=== PATIENT | male | born 1955 | race Caucasian/White ===

== ENCOUNTER 2018-09-16 08:27 | Emergency (ER) | payer OTHER ==
[~2018-09-16] VITALS: Wt 73.2 kg
[~2018-09-16 08:27] MED LIST: EPIN0.3P4 INJ; FAMO-96 PO; HYDR50TA15 PO
[2018-09-16 08:34] VITALS: BP 144/57; PULSE 92; RESP 17
[2018-09-16] MEDS ORDERED: SOD CHLORIDE 0.9% 1,000 ML IV STA (10:48)
--- NOTE | 2018-09-16 10:52 | ERD ---
ER Documentation Chief Complaint Chief Complaint BODYACHES, COUGH, FEVER AT HOME, ONSET 3 DAYS HPI This is a 62-year-old male presents to the ED with complaints of cough, congestion, body aches and fevers times 3 days. Patient states his cough is worse at nighttime. He states he has been taking tramadol for his body aches. He also started taking azithromycin which was prescribed through his doctor in the [facility] yesterday. He states he feels a little bit better but returns today because his cough kept him up at night and is requesting a chest x-ray. He denies any chest pain, shortness of breath, nausea, vomiting, abdominal pain or any other symptoms. Patient was seen here about 2 months ago for presumed tuberculosis after returning from [facility]. Confirmatory Qunatiferon test at that time was negative and pt did not require treatment. ROS All systems reviewed and are negative except as per history of present illness. Medications Home Meds Active Scripts Dextromethorphan Hb-Promethazine Hcl* (Promethazine DM* Syrup) 473 Ml Syrup, 5 ML PO Q6 PRN for COUGH for 7 Days, ML Prov:RAFFY RAMIREZ-C 09/16/18 Epinephrine (Epipen 2-Trip) 0.3 Mg/0.3 Ml Pen.injctr, 1 EA INJ ONCE PRN for ALLERGIC REACTION, #1 EA Prov:PASILABANPAT F 08/04/18 Hydroxyzine Hcl* (Hydroxyzine Hcl*) 50 Mg Tablet, 50 MG PO Q6H PRN for ITCHING, #30 TAB Prov:PASILABAN,PRAKASHAR F 08/04/18 Famotidine* (Pepcid*) 20 Mg Tablet, 40 MG PO BID for 30 Days, TAB Prov:PASILABAN,KLAR F 08/04/18 Allergies Allergies: Coded Allergies: No Known Allergy (Unverified , 09/16/18) PMhx/Soc History of Surgery: Yes (R hemicolectomy, appendectomy, LEFT knee) Anesthesia Reaction: No Hx Neurological Disorder: No Hx Respiratory Disorders: No Hx Cardiac Disorders: No Hx Psychiatric Problems: No Hx Miscellaneous Medical Probl: No Hx Alcohol Use: No Hx Substance Use: No Hx Tobacco Use: No Smoking Status: Never smoker Physical Exam Vitals Vital Signs Date Temp Pulse Resp B/P (MAP) Pulse Ox O2 O2 Flow FiO2 Time Delivery Rate 09/16/18 98.5 92 17 144/57 98 08:34 (86) Physical Exam Const: No acute distress Head: Atraumatic Eyes: Normal Conjunctiva ENT: Normal External Ears, Nose and Mouth. Neck: Full range of motion. No meningismus. Resp: + Right lower lung base with expiratory wheeze. No rhonchi no rales. No respiratory distress. Cardio: Regular rate and rhythm, no murmurs Abd: Soft, non tender, non distended. Normal bowel sounds Skin: No petechiae or rashes Back: No midline or flank tenderness Ext: No cyanosis, or edema Neur: Awake and alert Psych: Normal Mood and Affect Result Diagram: 09/16/18 1055 09/16/18 1055 Results 24 hrs Laboratory Tests Test 09/16/18 10:55 White Blood Count 7.2 10^3/ul Red Blood Count 4.71 10^6/ul Hemoglobin 14.3 g/dl Hematocrit 43.2 % Mean Corpuscular Volume 91.7 fl Mean Corpuscular Hemoglobin 30.4 pg Mean Corpuscular Hemoglobin Concent 33.1 g/dl Red Cell Distribution Width 12.2 % Platelet Count 263 10^3/UL Mean Platelet Volume 8.9 fl Immature Granulocytes % 0.700 % Neutrophils % 67.5 % Lymphocytes % 16.9 % Monocytes % 12.3 % Eosinophils % 2.2 % Basophils % 0.4 % Nucleated Red Blood Cells % 0.0 /100WBC Immature Granulocytes # 0.050 10^3/ul Neutrophils # 4.8 10^3/ul Lymphocytes # 1.2 10^3/ul Monocytes # 0.9 10^3/ul Eosinophils # 0.2 10^3/ul Basophils # 0.0 10^3/ul Nucleated Red Blood Cells # 0.0 10^3/ul Sodium Level 140 mmol/L Potassium Level 4.1 mmol/L Chloride Level 100 mmol/L Carbon Dioxide Level 29 mmol/L Anion Gap 11 Blood Urea Nitrogen 12 mg/dl Creatinine 1.01 mg/dl Est Glomerular Filtrat Rate mL/min > 60 mL/min Glucose Level 108 mg/dl Calcium Level 10.2 mg/dl Current Medications Medications Dose Sig/Javi Start Time Status Last (Trade) Ordered Route PRN Stop Time Admin Dose Reason Admin Sodium 1,000 ml @ Q1H STAT 09/16/18 DC 09/16/18 Chloride 1,000 mls/hr IV 10:48 10:58 09/16/18 11:47 Procedures/MDM Lab Results above were reviewed and interpreted by me as below. CBC: no e/o of systemic infection or severe anemia BMP: no e/o severe acidosis, alkalosis, renal failure, diabetic ketoacidosis Radiology Results as interpreted by Radiology: PROCEDURE: XR Chest CLINICAL INDICATION: Shortness of breath TECHNIQUE: Frontal view of the chest COMPARISON: CT CHEST 08/14/2018 FINDINGS: The cardiomediastinal silhouette is within normal limits. No focal pulmonary consolidations. There is no evidence of significant pleural effusion or pneumothorax. No suspicious osseous lesions. IMPRESSION: No radiographic evidence of acute cardiopulmonary disease. Nursing Notes Reviewed. Previous Medical Records requested via the Electronic Health Record. EMERGENCY DEPARTMENT COURSE / MEDICAL DECISION MAKIN yo M presents with cough and chest congestion x 3 days. He is afebrile here and vital signs are stable. No signs of hypoxia or respiratory distress. Lungs sounds are unremarkable on physical exam. CBC and CMP unremarkable. CXR negative for any PNA or significant pulmonary process. Sx are likely related to viral bronchitis. I do not think abx are appropriate in this setting however pt has already been taking Azithromycin since yesterday. He was given a rx for Promethazine DM and recommended follow up with PCP in 2 days. Strict return precautions given. Prior to discharge, patients vital signs have been reviewed SPECIALIST FOLLOW UP RECOMMENDED: None Patient has been advised to follow up with primary care in 1-2 days. Departure Diagnosis: Primary Impression: Bronchitis Additional Impression: Cough Condition: Stable Patient Instructions: Acute Bronchitis Referrals: [facility] RAFFY RAMIREZ PA-C Sep 16, 2018 10:52
[2018-09-16] MEDS ORDERED: D-ME473S2 PO (11:44)
== END 2018-09-16 12:09 | disposition home or self-care (01) ==
LOC: FTE 08:27
DX: J40 Bronchitis, not specified as acute or chronic (principal)
CPT/HCPCS: 36415; 71045; 80048; 85025; 96360; 99284; J7030

== ENCOUNTER 2019-01-28 11:04 | Emergency (ER) | payer OTHER ==
[~2019-01-28] VITALS: Ht 180.3 cm; Wt 71.5 kg
[~2019-01-28 11:04] MED LIST changes: +D-ME473S2 PO
[2019-01-28 11:07] VITALS: BP 135/80; PULSE 79; RESP 18; Ht 180.3 cm; Wt 71.5 kg
[2019-01-28] MEDS ORDERED: MUPI22OI2 TOP (11:20)
[2019-01-28] MEDS ORDERED: CEPH-443 PO (11:20)
--- NOTE | 2019-01-28 15:03 | ERD ---
ER Documentation Chief Complaint Chief Complaint scalp irritation after using hair dye yesterday HPI 83-year-old male presenting with excoriated scalp and skin irritation after using hair dye yesterday. Patient states that he is trying to cover up his grades with a new hair dye and his skin is reactive is very irritated. He has not tried any medications on the affected sites. He denies other medical problems. NKDA. Surgical history denies. Social history denies ROS All systems reviewed and are negative except as per history of present illness. Medications Home Meds Active Scripts Mupirocin* (Bactroban*) 2% -22 Gram Oint...g., 1 APPLIC TOP BID for 7 Days, EA Prov:BRITTANY ALVAREZ PA-C 01/28/19 Cephalexin* (Keflex*) 500 Mg Capsule, 500 MG PO QID for 7 Days, CAP Prov:BRITTANY ALVAREZ PA-C 01/28/19 Dextromethorphan Hb-Promethazine Hcl* (Promethazine DM* Syrup) 473 Ml Syrup, 5 ML PO Q6 PRN for COUGH for 7 Days, ML Prov:CLAUDOIIGRRAFFY BLEVINS PA-C 09/16/18 Epinephrine (Epipen 2-Trip) 0.3 Mg/0.3 Ml Pen.injctr, 1 EA INJ ONCE PRN for ALLERGIC REACTION, #1 EA Prov:ANETTEILAPAT VERONICA F 08/04/18 Hydroxyzine Hcl* (Hydroxyzine Hcl*) 50 Mg Tablet, 50 MG PO Q6H PRN for ITCHING, #30 TAB Prov:PASILAPRAKASH VERONICAAR F 08/04/18 Famotidine* (Pepcid*) 20 Mg Tablet, 40 MG PO BID for 30 Days, TAB Prov:PASILABANPRAKASHAR F 08/04/18 Allergies Allergies: Coded Allergies: No Known Allergy (Unverified , 09/16/18) PMhx/Soc History of Surgery: Yes (R hemicolectomy, appendectomy, LEFT knee) Anesthesia Reaction: No Hx Neurological Disorder: No Hx Respiratory Disorders: No Hx Cardiac Disorders: No Hx Psychiatric Problems: No Hx Miscellaneous Medical Probl: No Hx Alcohol Use: No Hx Substance Use: No Hx Tobacco Use: No Smoking Status: Never smoker FmHx Family History: No diabetes, No coronary disease, No other Physical Exam Vitals Vital Signs Date Temp Pulse Resp B/P (MAP) Pulse Ox O2 O2 Flow FiO2 Time Delivery Rate 01/28/19 97.6 79 18 135/80 18 11:07 (98) Physical Exam GENERAL: The patient is well-appearing, well-nourished, in no acute distress HEENT: Atraumatic. Conjunctivae are pink. Pupils equal, round, and reactive to light. There is no scleral icterus. Tympanic membranes clear bilaterally. Oropharynx clear. CHEST: Clear to auscultation bilaterally. There are no rales, wheezes or rhonchi. HEART: Regular rate and rhythm. No murmurs, clicks, rubs or gallops. SKIN: Low crusting noted under the scalp. No vesicles or pustules. No surrounding erythema. Procedures/MDM MDM: 63-year-old male presenting with scalp irritation. Patient has contact dermatitis due to his hair dye. Patient is discharged with supportive medications and told to follow-up with primary care within 1 to 2 days for close evaluation. Patient is told if symptoms change or worsen to return immediately to the ER. All questions answered at discharge Departure Diagnosis: Primary Impression: Contact dermatitis Condition: Stable Patient Instructions: Contact Dermatitis Referrals: [facility] YOU HAVE RECEIVED A MEDICAL SCREENING EXAM AND THE RESULTS INDICATE THAT YOU DO NOT HAVE A CONDITION THAT REQUIRES URGENT TREATMENT IN THE EMERGENCY DEPARTMENT. FURTHER EVALUATION AND TREATMENT OF YOUR CONDITION CAN WAIT UNTIL YOU ARE SEEN IN YOUR DOCTORS OFFICE WITHIN THE NEXT 1-2 DAYS. IT IS YOUR RESPONSIBILITY TO MAKE AN APPOINTMENT FOR FOLOW-UP CARE. IF YOU HAVE A PRIMARY DOCTOR --you should call your primary doctor and schedule an appointment IF YOU DO NOT HAVE A PRIMARY DOCTOR YOU CAN CALL OUR PHYSICIAN REFERRAL HOTLINE AT IF YOU CAN NOT AFFORD TO SEE A PHYSICIAN YOU CAN CHOSE FROM THE FOLLOWING [facility] [address] [facility]. [facility] [address] [facility] [address] [facility]. [facility] [address] [facility]. [facility] [address] [facility] [address] Additional Instructions: FOLLOW UP WITH YOUR PRIMARY CARE PHYSICIAN TOMORROW.Return to this facility if you are not improving as expected. BRITTANY ALVAREZ PA-C Jan 28, 2019 15:03
== END 2019-01-28 11:51 | disposition home or self-care (01) ==
LOC: FTE 11:04
DX: L25.9 Unspecified contact dermatitis, unspecified cause (principal)
CPT/HCPCS: 99283

== ENCOUNTER 2019-02-11 07:36 | Emergency (ER) | payer OTHER ==
[~2019-02-11] VITALS: Ht 182.9 cm; Wt 70.2 kg
[~2019-02-11 07:36] MED LIST changes: +CEPH-443 PO; +CLIN300C10 PO; +ELIM TOP; +MUPI22OI2 TOP
[2019-02-11 07:38] VITALS: BP 119/76; PULSE 67; RESP 20; Ht 182.9 cm; Wt 70.2 kg
--- NOTE | 2019-02-11 08:04 | ERD ---
ER Documentation Chief Complaint Chief Complaint rashes; allergic reaction to hair dye HPI 63-year-old male presenting with a rash to his scalp. 1 month ago patient his hair and he sustained an allergic reaction rash. Patient has had irritation ever since. He is been seen in the ER previously for this and been given medication which is mildly alleviated however patient has had continued issues. He also describes itching to his arms which is new. He denies other medical problems. NKDA. Surgical history denies. Social history denies ROS All systems reviewed and are negative except as per history of present illness. Medications Home Meds Active Scripts Clindamycin Hcl* (Clindamycin Hcl*) 300 Mg Capsule, 300 MG PO TID for 10 Days, CAP Prov:BRITTANY ALVAREZ PA-C 02/11/19 Mupirocin* (Bactroban*) 2% -22 Gram Oint...g., 1 APPLIC TOP BID for 7 Days, EA Prov:BRITTANY ALVAREZ PA-C 02/11/19 Permethrin* (Elimite*) 5% Cr, 1 APPLIC TOP ONCE, #1 TUB Prov:BRITTANY ALVAREZ PA-C 02/11/19 Mupirocin* (Bactroban*) 2% -22 Gram Oint...g., 1 APPLIC TOP BID for 7 Days, EA Prov:BRITTANY ALVAREZ PA-C 01/28/19 Cephalexin* (Keflex*) 500 Mg Capsule, 500 MG PO QID for 7 Days, CAP Prov:BRITTANY ALVAREZ PA-C 01/28/19 Dextromethorphan Hb-Promethazine Hcl* (Promethazine DM* Syrup) 473 Ml Syrup, 5 ML PO Q6 PRN for COUGH for 7 Days, ML Prov:CLAUDIOIGRRAFFY BLEVINS PA-C 09/16/18 Epinephrine (Epipen 2-Trip) 0.3 Mg/0.3 Ml Pen.injctr, 1 EA INJ ONCE PRN for ALLERGIC REACTION, #1 EA Prov:PASILABANPRAKASHAR F 08/04/18 Hydroxyzine Hcl* (Hydroxyzine Hcl*) 50 Mg Tablet, 50 MG PO Q6H PRN for ITCHING, #30 TAB Prov:PASILABANPRAKASHAR F 08/04/18 Famotidine* (Pepcid*) 20 Mg Tablet, 40 MG PO BID for 30 Days, TAB Prov:PAT FOY 08/04/18 Allergies Allergies: Coded Allergies: No Known Allergy (Unverified , 09/16/18) PMhx/Soc History of Surgery: Yes (R hemicolectomy, appendectomy, LEFT knee) Anesthesia Reaction: No Hx Neurological Disorder: No Hx Respiratory Disorders: No Hx Cardiac Disorders: No Hx Psychiatric Problems: No Hx Miscellaneous Medical Probl: No Hx Alcohol Use: No Hx Substance Use: No Hx Tobacco Use: No FmHx Family History: No diabetes, No coronary disease, No other Physical Exam Vitals Vital Signs Date Temp Pulse Resp B/P (MAP) Pulse Ox O2 O2 Flow FiO2 Time Delivery Rate 02/11/19 98.1 67 20 119/76 99 07:38 (90) Physical Exam GENERAL: The patient is well-appearing, well-nourished, in no acute distress HEENT: Atraumatic. Conjunctivae are pink. Pupils equal, round, and reactive to light. There is no scleral icterus. Tympanic membranes clear bilaterally. Oropharynx clear. CHEST: Clear to auscultation bilaterally. There are no rales, wheezes or rhonchi. HEART: Regular rate and rhythm. No murmurs, clicks, rubs or gallops. SKIN: Erythema noted around the scalp with areas of crusty yellow discharge. No purulence. No pustules or vesicles. Excoriated lesions noted on the arms with the adrianna. Small pinpoint lesions noted Procedures/MDM MDM: 63-year-old male presenting with rash to scalp. Patient will be treated for continued impetigo and told to kids stop using hair dye that he has been previously using. Patient also has concerning findings for possible scabies so patient will be treated. Patient is told symptoms change or worsen to return immediately to the ER. All questions answered at discharge Departure Diagnosis: Primary Impression: Contact dermatitis Additional Impression: Impetigo Condition: Stable Patient Instructions: Scabies, Contact Dermatitis Referrals: [facility] YOU HAVE RECEIVED A MEDICAL SCREENING EXAM AND THE RESULTS INDICATE THAT YOU DO NOT HAVE A CONDITION THAT REQUIRES URGENT TREATMENT IN THE EMERGENCY DEPARTMENT. FURTHER EVALUATION AND TREATMENT OF YOUR CONDITION CAN WAIT UNTIL YOU ARE SEEN IN YOUR DOCTORS OFFICE WITHIN THE NEXT 1-2 DAYS. IT IS YOUR RESPONSIBILITY TO MAKE AN APPOINTMENT FOR FOLOW-UP CARE. IF YOU HAVE A PRIMARY DOCTOR --you should call your primary doctor and schedule an appointment IF YOU DO NOT HAVE A PRIMARY DOCTOR YOU CAN CALL OUR PHYSICIAN REFERRAL HOTLINE AT IF YOU CAN NOT AFFORD TO SEE A PHYSICIAN YOU CAN CHOSE FROM THE FOLLOWING [facility] [address] [facility] [address] [facility] [facility] [address] [facility] [address] [facility]. [facility] [address] [facility]. [facility]. [address] Additional Instructions: FOLLOW UP WITH YOUR PRIMARY CARE PHYSICIAN TOMORROW.Return to this facility if you are not improving as expected. BRITTANY ALVAREZ PA-C Feb 11, 2019 08:04
== END 2019-02-11 08:26 | disposition home or self-care (01) ==
LOC: FTE 07:36
DX: L25.9 Unspecified contact dermatitis, unspecified cause (principal); L01.00 Impetigo, unspecified
CPT/HCPCS: 99283